=== PATIENT | male | born 1975 | race Caucasian/White ===

== ENCOUNTER 2019-09-22 15:23 | Emergency (ER) | payer MEDICARE, OTHER ==
[2019-09-22 17:06] VITALS: BP 122/85
--- NOTE | 2019-09-22 17:17 | UC ---
Skin Complaint HPI - HPI Summary HPI Summary: Pt presents with c/o abrasion to right lateral upper chest wall that occurred on 09/17/19 while helping change the oil on a car. Pt receives IgG infusion every 3 weeks and is concerned that he is not up to date with tetanus vaccine. - History of Current Complaint Chief Complaint: UCSkin Time Seen by Provider: 09/22/19 16:48 Stated Complaint: SCRATCH ON BACK Hx Obtained From: Patient Onset/Duration: Sudden Onset, Lasting Days, Still Present Skin Exposure Onset/Duration: Days Ago Timing: Constant Onset Severity: Mild Current Severity: Mild Pain Intensity: 10 Location: Discrete - right lateral upper chest wall Aggravating Factor(s): Nothing Alleviating Factor(s): Nothing Associated Signs & Symptoms: Positive: Negative - Allergy/Home Medications Allergies/Adverse Reactions: Allergies Allergy/AdvReac Type Severity Reaction Status Date / Time seasonal Allergy Sneezing Uncoded 09/22/19 17:08 Home Medications: Home Medications Baclofen TAB* [Lioresal TAB*] 40 mg PO BID 09/22/19 [History Confirmed 09/22/19 ] Diazepam TAB(*) [Valium TAB(*)] 20 mg PO BID 09/22/19 [History Confirmed ] Melatonin [Ra Melatonin] 10 mg PO QPM 09/22/19 [History Confirmed 09/22/19] Prednisone 35mg 35 mg PO QAM 09/22/19 [History] Vitamins & Supplement 1 dose PO DAILY 09/22/19 [History] PMH/Surg Hx/FS Hx/Imm Hx Previously Healthy: No - Hx of Immune compromised - Surgical History Surgical History: Yes Surgery Procedure, Year, and Place: 2 microscopic deacompression right shoulder , t/a - Family History Known Family History: Positive: Cardiac Disease - Social History Occupation: Disabled Lives: With Family Alcohol Use: None Substance Use Type: None Smoking Status (MU): Former Smoker Have You Smoked in the Last Year: No - Immunization History Vaccination Up to Date: No Review of Systems All Other Systems Reviewed And Are Negative: Yes Constitutional: Positive: Negative Skin: Positive: Other - healing abrasion Eyes: Positive: Negative ENT: Positive: Negative Respiratory: Positive: Negative Cardiovascular: Positive: Negative Gastrointestinal: Positive: Negative Genitourinary: Positive: Negative Motor: Positive: Negative Neurovascular: Positive: Negative Musculoskeletal: Positive: Negative Neurological: Positive: Negative Psychological: Positive: Negative Is Patient Immunocompromised?: No Physical Exam Triage Information Reviewed: Yes Appearance: Well-Appearing Vital Signs: Initial Vital Signs Temp 97.9 F 09/22/19 16:53 Pulse 77 09/22/19 16:53 Resp 20 09/22/19 16:53 BP 122/85 09/22/19 16:53 Pulse Ox 97 09/22/19 16:53 Vital Signs Reviewed: Yes Eye Exam: Normal ENT Exam: Normal Dental Exam: Normal Neck exam: Normal Respiratory: Positive: No respiratory distress Musculoskeletal Exam: Normal Neurological Exam: Normal Psychological Exam: Normal Skin Exam: Other - 3 cm healing linear abrasion right lateral upper chest wall, that has scabbed over and is non tender to touch. Pt did not come in contact with high risk tetanus object Course/Dx - Course Course Of Treatment: I discussed with the pt the need to follow up with PCP for tetanus status. Pt verbalized understanding and agreed to plan care - Differential Diagnoses - Skin Complaint Differential Diagnoses: Abscess, MRSA - Diagnoses Provider Diagnosis: Abrasion Discharge ED - Sign-Out/Discharge Documenting (check all that apply): Patient Departure All imaging exams completed and their final reports reviewed: No Studies - Discharge Plan Condition: Stable Disposition: HOME Patient Education Materials: Abrasion (ED) Referrals: No Primary Care Phys,NOPCP [Primary Care Provider] - Additional Instructions: Please follow up with your PCP as soon as possible. It is important to remain up to date with all vaccinations. - Billing Disposition and Condition Condition: STABLE Disposition: Home
== END 2019-09-22 17:24 | disposition home or self-care (01) ==
LOC: UCCORT 15:23
DX: S20.311A Abrasion of right front wall of thorax, initial encounter (principal); Z91.09 Other allergy status, other than to drugs and biological substances; D89.9 Disorder involving the immune mechanism, unspecified; Z79.899 Other long term (current) drug therapy; Z87.891 Personal history of nicotine dependence; X58.XXXA Exposure to other specified factors, initial encounter; Y93.89 Activity, other specified; Y92.9 Unspecified place or not applicable
CPT/HCPCS: 99211; G0463